=== PATIENT | male | born 1980 | race Caucasian/White ===

== ENCOUNTER → 2023-06-10 | Outpatient (CLI) | payer BC ==
--- NOTE | 2023-06-10 11:48 | CA ---
Exercise Stress Test Report Name: Babak Fuentes Exam Date: 06/10/2023 11:00 Exam Location: [place] Stress Ht (in): 72 Wt (lb): 196 BSA: 2.11 Ordering Phys: Tal Little MD Referring Phys: AURELIO Technologist: Peña Petersen Age: 42 Gender: M : 1980 Procedure CPT: Indications: R07.89 CHEST TIGHTNESS ICD-10 Codes: Patient History: Chest pain and shortness of breath Medications: Meds past 24 hrs: Pretest Chest Pain: STRESS TEST Shoaib Protocol Exercise Duration (min:sec): 09:[address] Depressions (mm): Angina Score: Castillo Score: Resting HR (bpm): 78 Peak HR (bpm): 161 Resting BP (mmHg): 113 / 81 Peak BP (mmHg): 208 / 83 MPHR: 179 Target HR: 152 % MPHR: 90 METS: 10.3 Total Dose: Peak Dose: Atropine: Double Product: 04380 BP Response: Stress Termination: TARGET HR REACHED/MAX EXERTION Stress Symptoms: DIFFICULTY IN BREATHING Stress Summary: ECG ANALYSIS Resting ECG: Normal sinus rhythm normal axis normal intervals Stress ECG: Patient exercised on Shoaib protocol for 9 minutes achieving 10 mets 85% of predicted maximal heart rate without chest pain or diagnostic ST segment depression CONCLUSIONS Good exercise tolerance Negative stress test by EKG criteria Dr. Brad Donaldson MD (Electronically Signed) Final Date: 10 June 2023 11:47
== END | disposition home or self-care (01) ==
LOC: RADNMMAIN 10:26
PROVIDERS: ATTEND Family Medicine
DX: R07.89 Other chest pain (principal)
CPT/HCPCS: 93017

== ENCOUNTER → 2023-06-12 | Outpatient (CLI) | payer BC ==
--- NOTE | 2023-06-12 08:38 | US ---
EXAMINATION TYPE: US liver DATE OF EXAM: 06/12/2023 COMPARISON: NONE CLINICAL INDICATION: Male, 42 years old with history of B19.20 UNSPECIFIED VIRAL HEPATITIS C WITHOUT HEPAT; HEP C TECHNIQUE: Multiple sonographic images of the right upper quadrant are obtained. FINDINGS: EXAM MEASUREMENTS: Liver Length: 16.9 cm Gallbladder Wall: .3 cm CBD: .3 cm Right Kidney: 11.9 x 4.6 x 3.9 cm [employer]OR NOTES: Pancreas: Obscured by bowel gas Liver: Increased attenuation Gallbladder: No stones seen Evidence for sonographic Cummings's sign: No CBD: wnl Right Kidney: No hydronephrosis or masses seen IMPRESSION: No discrete abnormality seen.
== END | disposition home or self-care (01) ==
LOC: RADUSWWP 07:01
PROVIDERS: ATTEND Internal Medicine Gastroenterology
DX: B19.20 Unspecified viral hepatitis C without hepatic coma (principal)
CPT/HCPCS: 76705

== ENCOUNTER → 2023-06-24 | Outpatient (CLI) | payer BC ==
[2023-06-24 11:54] LABS: Basophils # (A) 0.06 X 10*3/uL (0.00-0.10); Eosinophils # (A) 0.47 X 10*3/uL (0.04-0.35); Eosinophils % (A) 7.8 %; HCT 47.1 % (39.6-50.0); HGB 16.1 g/dL (13.0-17.0); Lymphocytes # (A) 2.42 X 10*3/uL (0.90-5.00); Lymphocytes % (A) 40.3 %; MCH 28.2 pg (27.0-32.0); MCHC 34.2 g/dL (32.0-37.0); MCV 82.6 FL (80.0-97.0); Mean Platelet Volume 12.7 FL (9.5-12.2); Monocytes # (A) 0.61 X 10*3/uL (0.20-1.00); Monocytes % (A) 10.2 %; NRBC Per 100 WBC 0 X 10*3/uL (0.00-0.01); Neutrophils # (A) 2.42 X 10*3/uL (1.80-7.70); Neutrophils % (A) 40.4 %; Platelet Count 148 X 10*3/uL (140-440); RDW 13.5 % (11.5-14.5)
[2023-06-24 13:20] LABS: ALT 87 U/L (10-49); AST 46 U/L (14-35); Albumin 4.4 g/dL (3.8-4.9); Albumin/Globulin Ratio 1.57 Ratio (1.60-3.17); Alkaline Phosphatase 84 U/L (41-126); BUN/Creat Ratio 18.12 Ratio (12.00-20.00); Blood Urea Nitrogen 14.5 mg/dL (9.0-27.0); Calcium 9.7 mg/dL (8.7-10.3); Carbon Dioxide 26.6 mmol/L (21.6-31.8); Chloride 106 mmol/L (96-109); Globulin 2.8 g/dL (1.6-3.3); Glucose 113 mg/dL (70-110); Potassium 4.5 mmol/L (3.5-5.5); Sodium 144 mmol/L (135-145); Total Bilirubin 0.7 mg/dL (0.3-1.2); Total Protein 7.2 g/dL (6.2-8.2)
== END | disposition home or self-care (01) ==
LOC: LABWHC1 07:30
PROVIDERS: ATTEND Nurse Practitioner Family
DX: B19.20 Unspecified viral hepatitis C without hepatic coma (principal)
CPT/HCPCS: 36415; 80053; 81596; 82105; 85025; 87522

== ENCOUNTER → 2023-11-18 | Outpatient (CLI) | payer BC | END | disposition home or self-care (01) | LOC: LABWHC1 11:12 | PROVIDERS: ATTEND Internal Medicine Gastroenterology | DX: B19.20 Unspecified viral hepatitis C without hepatic coma (principal) | CPT/HCPCS: 36415; 80053; 85025; 87522 ==